=== PATIENT | female | born 1965 | race Caucasian/White ===

== ENCOUNTER 2016-09-22 07:39 | Emergency (ER) | payer SELFPAY ==
[~2016-09-22] VITALS: Ht 170.2 cm; Wt 57.8 kg
[~2016-09-22 07:39] MED LIST: MOTRIN600 MG PO; PEN-VEE K,VEET500 MG PO; ZOFRAN ODT8 MG PO
[2016-09-22] MEDS ORDERED: PEN-VEE K,VEET500 MG PO (07:53)
[2016-09-22] MEDS ORDERED: NORCO 5/3251 TABLET PO (07:53)
[2016-09-22 08:10] VITALS: BP 128/70
== END 2016-09-22 08:10 | disposition home or self-care (01) ==
LOC: EME 07:39
DX: K08.89 Other specified disorders of teeth and supporting structures (principal); R22.0 Localized swelling, mass and lump, head; R68.84 Jaw pain; K03.81 Cracked tooth; K02.9 Dental caries, unspecified; F17.200 Nicotine dependence, unspecified, uncomplicated
CPT/HCPCS: 99281; 99283

== ENCOUNTER 2017-01-02 13:55 | Emergency (ER) | payer SELFPAY ==
[~2017-01-02] VITALS: Ht 170.2 cm; Wt 55.9 kg
[~2017-01-02 13:55] MED LIST changes: +NORCO 5/3251 TABLET PO
[2017-01-02] MEDS ORDERED: MOTRIN800 MG PO (16:16)
[2017-01-02] MEDS ORDERED: PEN-VEE K,VEET500 MG PO (16:16)
[2017-01-02 16:47] VITALS: BP 103/67
== END 2017-01-02 16:48 | disposition home or self-care (01) ==
LOC: EME 13:55
DX: K02.9 Dental caries, unspecified (principal); K08.89 Other specified disorders of teeth and supporting structures; F17.210 Nicotine dependence, cigarettes, uncomplicated
CPT/HCPCS: 99281; 99283